=== PATIENT | male | born 1970 | race Caucasian/White ===

== ENCOUNTER 2021-05-29 17:15 | Emergency (ER) | payer OTHER ==
[2021-05-29 18:38] LABS: HEMOGLOBIN 14.8 gm/dl (14.0-17.5); RED BLOOD COUNT 4.22 M/UL (4.20-5.50); WHITE BLOOD COUNT 6.8 K/UL (4.5-11.0)
[2021-05-29 19:01] LABS: BUN/CREATININE RATIO 17 (0-10)
[2021-05-29] MEDS ORDERED: LISINOPRIL10 MG PO (19:34)
[2021-05-29] MEDS ORDERED: PREDNISONE20 MG PO (19:34)
[2021-05-29] MEDS ORDERED: VALACYCLOVIR1000 MG PO (19:34)
[2021-05-29] MEDS ORDERED: ERYTHROMYCIN O3.5 GM OU (19:41)
== END 2021-05-29 19:55 | disposition home or self-care (01) ==
LOC: ER1 17:15
PROVIDERS: Family Medicine
DX: G51.0 Bell's palsy (principal); I10 Essential (primary) hypertension; R53.1 Weakness; F17.210 Nicotine dependence, cigarettes, uncomplicated
CPT/HCPCS: 70450; 80053; 82550; 82553; 83874; 84484; 85025; 93005; 99285

== ENCOUNTER → 2021-12-13 | Outpatient (CLI) | payer OTHER ==
[~2021-12-13] MED LIST: ERYTHROMYCIN O3.5 GM OU; LISINOPRIL10 MG PO; PREDNISONE20 MG PO; VALACYCLOVIR1000 MG PO
== END ==
LOC: NM 09:55
DX: R07.9 Chest pain, unspecified (principal); I25.9 Chronic ischemic heart disease, unspecified
CPT/HCPCS: 78452; A9502; J2785